=== PATIENT | female | born 1980 | race African-American/Black ===

== ENCOUNTER 2017-08-22 09:01 | Emergency (ER) | payer SELFPAY ==
[~2017-08-22] VITALS: Ht 165.1 cm; Wt 64.0 kg
[2017-08-22 09:02] VITALS: BP 171/94; PULSE 91; RESP 14; TEMP 98.1; O2SAT 100
--- NOTE | 2017-08-22 10:40 | PD ---
HPI Chief Complaint: Back/ Neck Pain or Injury Time Seen by Provider: 10:30 Travel History International Travel<30 days: No Contact w/Intl Traveler<30days: No Traveled to known affect area: No History of Present Illness HPI 37-year-old female presents to the emergency room for evaluation of low back pain that started yesterday evening. Patient states she lifted heavy boxes at work began after relaxing at home, started developing aching, bilateral low back pain. No radiation. Worse with certain range of motion and standing for long periods of time. Improves at rest. Patient has been taking NSAIDs with moderate relief in symptoms. No lower extremity paresthesias, saddle anesthesia , loss of bladder or bladder control, fever, chills, nausea, vomiting, IV drug use, or weight loss. Denies chronic medical conditions or daily medications. History Past Medical Histgory LMP: LAST WEEK Social History Alcohol Use: Yes (SPECIAL OCCASIONS) Tobacco Use: Yes (/ PPD) Allergies-Medications (Allergen,Severity, Reaction): Coded Allergies: No Known Allergies (Verified Adverse Reaction, Unknown, 08/22/17) Reported Meds & Prescriptions Reported Meds & Active Scripts Active No Active Prescriptions or Reported Medications Review of Systems Except as stated in HPI: all other systems reviewed are Neg Physical Exam Narrative GENERAL: Well-nourished, well-developed female in no acute distress. Afebrile. Ambulatory. SKIN: Focused skin assessment warm/dry. HEAD: Normocephalic. EYES: No scleral icterus. No injection or drainage. NECK: Supple, trachea midline. No JVD or lymphadenopathy. CARDIOVASCULAR: Regular rate and rhythm without murmurs, gallops, or rubs. RESPIRATORY: Breath sounds equal bilaterally. No accessory muscle use. BACK: No midline tenderness. No obvious deformity. No CVA tenderness. Mild tenderness to palpation of bilateral paraspinous musculature of the lumbar spine. Patellar and Achilles reflexes are diminished but equal bilaterally. Data Data Last Documented VS Vital Signs Date Time Temp Pulse Resp B/P (MAP) Pulse Ox O2 Delivery O2 Flow Rate FiO2 08/22/17 09:02 98.1 91 14 171/94 (119) 100 MDM Medical Screen Exam Complete: Yes Emergency Medical Condition: No Differential Diagnosis Low back strain Narrative Course 37-year-old female presents to the emergency room for evaluation of one day history of low back pain after lifting a heavy box. Patient denies any radiation. No focal neurological deficits. No midline tenderness. No red flag symptoms. No indication for emergent imaging. Patient was informed this is likely low back strain and will improve with resting and NSAIDs No urgent or emergent medical conditions at this time. A medical screening exam was performed: At the time of evaluation the presenting medical condition was determined not to be of an emergent nature. The patient was given the option of receiving additional care, but declined. Patient was given options for additional community resources from which to obtain care. The Patient Has Been advised to seek medical attention for their presenting complaint. The patient has been advised to return to the ER at any time if an emergent condition develops. Primary Impression: Encounter for medical screening examination Scripts No Active Prescriptions or Reported Meds Disposition: 01 DISCHARGE HOME Condition: Stable Arpita Mtz Aug 22, 2017 10:40
== END 2017-08-22 10:59 | disposition left against medical advice (07) ==
LOC: NEPK 09:01
DX: M54.5 Low back pain (principal)
CPT/HCPCS: 99281

== ENCOUNTER 2018-01-30 23:15 | Emergency (ER) | payer SELFPAY ==
[2018-01-30 23:19] VITALS: BP 164/70; PULSE 102; RESP 18; TEMP 98.3; O2SAT 98
[2018-01-30] MEDS ORDERED: AMOXICILLIN/CLAVULANATE K 875 MG TAB PO ONE (23:45)
[2018-01-30] MEDS ORDERED: ACETAMINOPHEN/HYDROcodone 325 MG/7.5 MG TAB PO ONE (23:45)
[2018-01-30] MEDS ORDERED: AUGM875T3 PO (23:52)
[2018-01-30] MEDS ORDERED: TRAM50TA PO (23:52)
--- NOTE | 2018-01-30 23:52 | PD ---
HPI Chief Complaint: Oral / Dental Pain or Problem Time Seen by Provider: 23:39 Travel History International Travel<30 days: No Contact w/Intl Traveler<30days: No Traveled to known affect area: No History of Present Illness HPI Patient is a 37-year-old female presenting to the emergency department for evaluation of right lower molar pain. Patient states this is ongoing issue for her with exacerbations of her pain occasionally. She states for the last 24 hours or so the pain has gotten worse and there has been swelling adjacent to the right lower molar. Patient reports pain is a 10 out of 10, she described as aching and throbbing. There are no alleviating factors. Pain is exacerbated with any touch or chewing. Symptom onset was gradual, symptoms are moderate to severe nature. PFSH Past Medical History Medical History: Denies Significant Hx Diminished Hearing: No ?: Not : 5 Para: 5 Tubal Ligation: Yes Past Surgical History Surgical History: No Previous Surgery Social History Alcohol Use: Yes (SPECIAL OCCASIONS) Tobacco Use: Yes (09/19 PPD) Substance Use: No Allergies-Medications (Allergen,Severity, Reaction): Coded Allergies: No Known Allergies (Verified Adverse Reaction, Unknown, 08/22/17) Reported Meds & Prescriptions Reported Meds & Active Scripts Active No Active Prescriptions or Reported Medications Review of Systems Except as stated in HPI: all other systems reviewed are Neg HENT: Positive: Dental Difficulties Physical Exam Narrative GENERAL: Well-developed, well-nourished, alert -[place] female. Appears uncomfortable, no acute distress. SKIN: Warm and dry. HEAD: Normocephalic. EYES: No scleral icterus. No injection or drainage. MOUTH: Mucous membranes moist, tongue appears normal, the right lower molar has gingival edema on the inner aspect, no fluctuance noted. No significant erythema. Tooth is broken as well. NECK: Supple, trachea midline. No JVD or lymphadenopathy. CARDIOVASCULAR: Regular rate and rhythm without murmurs, gallops, or rubs. RESPIRATORY: Breath sounds equal bilaterally. No accessory muscle use. GASTROINTESTINAL: Abdomen soft, non-tender, nondistended. MUSCULOSKELETAL: No cyanosis, or edema. BACK: Nontender without obvious deformity. No CVA tenderness. Data Data Last Documented VS Vital Signs Date Time Temp Pulse Resp B/P (MAP) Pulse Ox O2 Delivery O2 Flow Rate FiO2 01/30/18 23:19 98.3 102 18 164/70 (101) 98 Orders Orders Amoxicil-Clavulanate (Augmentin) (01/30/18 23:45) Acetamin-Hydrocod 325-7.5 Mg ([place] 7.5 (01/30/18 23:45) MDM Medical Decision Making Medical Screen Exam Complete: Yes Emergency Medical Condition: Yes Interpretation(s) Vital Signs Date Time Temp Pulse Resp B/P (MAP) Pulse Ox O2 Delivery O2 Flow Rate FiO2 01/30/18 23:19 98.3 102 18 164/70 (101) 98 Differential Diagnosis Gingivitis versus dental abscess versus dentalgia versus dental caries versus other Narrative Course Patient is a 37-year-old female presenting for evaluation of right lower molar pain. Tooth is broken, this edema noted to the gums. Patient be given dose of Augmentin now as well as Lortab for pain. She was advised that she will need to follow-up with a dentist for further evaluation and management. She is encouraged to complete full course of antibiotics as prescribed. She is advised to return to emergency department for any new or worsening symptoms. Patient verbalized understanding of instructions. Patient stable for discharge. Diagnosis Primary Impression: Dental abscess Referrals: Dentist 1 day Patient Instructions: Dental Abscess (ED), Dental Caries (DC), General Instructions, Narcotic given in the ED Additional Instructions: Follow-up with a dentist in 1-2 days Complete full course of antibiotics as prescribed Do not drive or operate machinery while taking narcotic pain medication Return to emergency department for any new or worsening symptoms Med/Other Pt SpecificInfo: Prescription(s) given Scripts Amoxicillin-Clavulanate (Augmentin) 875-125 Mg Tab 1 TAB PO BID for Infection, #20 TAB 0 Refills Prov: Michelle Grey 01/30/18 Tramadol (Tramadol) 50 Mg Tab 50 MG PO Q6H Y for PAIN, #6 TAB 0 Refills Prov: Michelle Grey 01/30/18 Disposition: 01 DISCHARGE HOME Condition: Stable Michelle Grey January 30, 2018 23:52
== END 2018-01-31 00:28 | disposition home or self-care (01) ==
LOC: NEPD 23:15
DX: K04.7 Periapical abscess without sinus (principal); F17.210 Nicotine dependence, cigarettes, uncomplicated
CPT/HCPCS: 99283